=== PATIENT | female | born 1950 | race Caucasian/White ===

== ENCOUNTER 2019-01-29 13:23 | Inpatient (IN) | payer MEDICARE ==
[~2019-01-29] VITALS: Ht 170.2 cm; Wt 58.7 kg
[~2019-01-29 13:23] MED LIST: ACET325T26 PO; CEFD300C37 PO; FERR325T16 PO; HEPA50002 SQ; MULT-484 PO; ONDA4TAB13 PO; OXYC5TAB3 PO; SENN-193 PO
[2019-01-29] MEDS ORDERED: SENN-193 PO (16:15)
[2019-01-29 16:32] VITALS: BP 145/84
[2019-01-29] MEDS ORDERED: ACETAMINOPHEN 325 MG TABLET PO PRN (17:00)
[2019-01-29] MEDS ORDERED: ONDANSETRON ODT 4 MG PO PRN (17:00)
[2019-01-29] MEDS ORDERED: SENNOSIDES 8.6 MG TABLET PO PRN (17:00)
[2019-01-29] MEDS ORDERED: POLYETHYLENE GLYCOL 17 GM PACKET PO PRN (17:00)
[2019-01-29] MEDS: PLEASE ENTER HEIGHT AND WEIGHT MC SCH (17:25)
[2019-01-29 19:48] VITALS: BP 144/86
[2019-01-29] MEDS: CEFDINIR 300 MG CAPSULE PO SCH (20:41)
[2019-01-30] MEDS: PLEASE ENTER HEIGHT AND WEIGHT MC SCH (01:00)
[2019-01-30 05:50] LABS: BASOPHILS # (AUTO) 0.02 x10^3/uL (0-0.1); BASOPHILS % (AUTO) 0 % (0-1); EOSINOPHILS # (AUTO) 0.15 x10^3/uL (0-0.4); EOSINOPHILS % (AUTO) 3 % (1-7); LYMPHOCYTES % (AUTO) 17 % (22-44); MD NO; MEAN CORPUSCULAR HEMOGLOBIN 32.3 pg (27.0-34.8); MEAN CORPUSCULAR HGB CONC 33.9 g/dL (32.4-35.8); MEAN CORPUSCULAR VOLUME 95.3 fL (80-100); MEAN PLATELET VOLUME 6.8 fL (7.4-10.4); MONOCYTES # (AUTO) 0.56 x10^3/uL (0.2-0.8); MONOCYTES % (AUTO) 10 % (2-9); NEUTROPHILS # (AUTO) 4.07 x10^3/uL (1.8-6.8); NEUTROPHILS % (AUTO) 70 % (42-75); PLATELET COUNT 478 x10^3/uL (130-400); RED BLOOD COUNT 3.89 x10^6/uL (3.82-5.3); RED CELL DISTRIBUTION WIDTH 13.7 % (9.6-15.2)
[2019-01-30 06:05] LABS: CHLORIDE 109 mmol/L (98-107)
[2019-01-30 06:36] LABS: ANION GAP 6 mmol/L (5-15); CALCIUM 9.2 mg/dL (8.5-10.1); CHOL/HDL RATIO 4.3; CHOLESTEROL, TOTAL 218 mg/dL (140-239); CREATININE 0.82 mg/dL (0.55-1.02); FREE T4 (FREE THYROXINE) 1.06 ng/dL (0.76-1.46); HDL CHOL % 23 % (28-40); HDL CHOLESTEROL (DIRECT) 51 mg/dL (40-60); LDL CHOLESTEROL,CALCULATED 143 mg/dL (54-169); LDL/HDL RATIO 2.8 (0.5-3.0); TRIGLYCERIDES 118 mg/dL (50-200); VLDL CHOLESTEROL 24 mg/dL (0-25)
[2019-01-30 07:28] VITALS: BP 135/79
[2019-01-30] MEDS: CEFDINIR 300 MG CAPSULE PO SCH ×2 (08:45→20:06)
[2019-01-30] MEDS: FERROUS GLUCONATE 324 MG TABLET PO SCH (08:45)
[2019-01-30] MEDS: ACETAMINOPHEN 325 MG TABLET PO PRN (08:46)
--- NOTE | 2019-01-30 09:01 | NUR ---
REC: Reg/thins; no orange sheet was indicated Addendum: 01/30/19 at 0902 by Alona VAZQUEZ Amended: Links added.
[2019-01-30 19:23] VITALS: BP 104/70
[2019-01-31] MEDS: QUETIAPINE 25MG TABLET PO PRN ×2 (09:05→18:24)
[2019-01-31] MEDS: FERROUS GLUCONATE 324 MG TABLET PO SCH (09:05)
[2019-01-31] MEDS: CEFDINIR 300 MG CAPSULE PO SCH ×2 (09:05→20:14)
[2019-01-31 11:29] VITALS: BP 115/74
[2019-01-31] MEDS: ACETAMINOPHEN 325 MG TABLET PO PRN (17:18)
[2019-01-31 19:30] VITALS: BP 104/68
[2019-02-01 07:28] VITALS: BP 100/54
[2019-02-01] MEDS: FERROUS GLUCONATE 324 MG TABLET PO SCH (08:38)
[2019-02-01] MEDS: CEFDINIR 300 MG CAPSULE PO SCH ×2 (08:39→19:50)
[2019-02-01 19:36] VITALS: BP 102/65
[2019-02-01] MEDS: ACETAMINOPHEN 325 MG TABLET PO PRN (19:50)
[2019-02-02 07:22] VITALS: BP 126/73
[2019-02-02] MEDS: CEFDINIR 300 MG CAPSULE PO SCH ×2 (08:11→20:38)
[2019-02-02] MEDS: FERROUS GLUCONATE 324 MG TABLET PO SCH (08:12)
[2019-02-02 19:35] VITALS: BP 113/71
[2019-02-03 07:18] VITALS: BP 118/76
[2019-02-03] MEDS: CEFDINIR 300 MG CAPSULE PO SCH ×2 (08:40→20:23)
[2019-02-03] MEDS: FERROUS GLUCONATE 324 MG TABLET PO SCH (08:41)
[2019-02-03] MEDS: ACETAMINOPHEN 325 MG TABLET PO PRN (08:41)
[2019-02-03 19:02] VITALS: BP 119/77
[2019-02-04] MEDS: FERROUS GLUCONATE 324 MG TABLET PO SCH (07:35)
[2019-02-04] MEDS: CEFDINIR 300 MG CAPSULE PO SCH ×2 (08:18→20:11)
[2019-02-04] MEDS: ACETAMINOPHEN 325 MG TABLET PO PRN (08:18)
[2019-02-04 09:59] VITALS: BP 108/68
[2019-02-04 19:11] VITALS: BP 119/73
[2019-02-05 07:20] VITALS: BP 127/80
[2019-02-05] MEDS: CEFDINIR 300 MG CAPSULE PO SCH ×2 (08:37→20:32)
[2019-02-05] MEDS: FERROUS GLUCONATE 324 MG TABLET PO SCH (08:37)
[2019-02-05 19:33] VITALS: BP 108/73
[2019-02-06 07:25] VITALS: BP 126/78
[2019-02-06] MEDS: CEFDINIR 300 MG CAPSULE PO SCH ×2 (08:30→19:45)
[2019-02-06] MEDS: FERROUS GLUCONATE 324 MG TABLET PO SCH (08:30)
[2019-02-06 19:44] VITALS: BP 102/65
[2019-02-07] MEDS: FERROUS GLUCONATE 324 MG TABLET PO SCH (08:23)
[2019-02-07] MEDS: CEFDINIR 300 MG CAPSULE PO SCH ×2 (08:23→19:55)
[2019-02-07 08:59] VITALS: BP 141/75
[2019-02-07 19:24] VITALS: BP 109/69
[2019-02-08 07:27] VITALS: BP 136/77
[2019-02-08] MEDS: FERROUS GLUCONATE 324 MG TABLET PO SCH (08:31)
[2019-02-08] MEDS: CEFDINIR 300 MG CAPSULE PO SCH (08:31)
== END 2019-02-08 09:20 | disposition left against medical advice (07) | DRG 885 ==
LOC: 3E 15:56
PROVIDERS: ADMIT Psychiatry & Neurology Psychosomatic Medicine; ATTEND Psychiatry & Neurology Psychosomatic Medicine
DX: F29 Unspecified psychosis not due to a substance or known physiological condition (principal); L03.116 Cellulitis of left lower limb; L03.115 Cellulitis of right lower limb; F43.10 Post-traumatic stress disorder, unspecified; X58.XXXA Exposure to other specified factors, initial encounter; Y93.89 Activity, other specified; Y92.89 Other specified places as the place of occurrence of the external cause; Y99.8 Other external cause status; D50.9 Iron deficiency anemia, unspecified; I50.9 Heart failure, unspecified; Z88.2 Allergy status to sulfonamides
CPT/HCPCS: 36415; 71045; 80048; 80061; 82140; 82607; 84439; 84443; 85025; 93005